=== PATIENT | female | born 1950 | race Two or more races ===

== ENCOUNTER → 2017-03-24 | Outpatient (CLI) | payer MEDICARE | END | disposition home or self-care (01) | LOC: MRI 09:53 | PROVIDERS: ATTEND Psychiatry & Neurology Neurology | DX: M79.7 Fibromyalgia (principal); R90.82 White matter disease, unspecified; R91.1 Solitary pulmonary nodule; J98.4 Other disorders of lung | CPT/HCPCS: 70551; 71010 ==